=== PATIENT | female | born 1950 | race Caucasian/White ===

== ENCOUNTER 2017-10-20 07:37 | Outpatient (CLI) | payer OTHER | END 2017-10-20 08:00 | disposition home or self-care (01) | LOC: NUCLEAR 07:37 | DX: Z80.3 Family history of malignant neoplasm of breast (principal); C50.111 Malignant neoplasm of central portion of right female breast; Z85.3 Personal history of malignant neoplasm of breast; D51.8 Other vitamin B12 deficiency anemias; R97.0 Elevated carcinoembryonic antigen [CEA]; E55.9 Vitamin D deficiency, unspecified; M81.0 Age-related osteoporosis without current pathological fracture; I10 Essential (primary) hypertension; E78.5 Hyperlipidemia, unspecified; Z79.811 Long term (current) use of aromatase inhibitors; Z17.0 Estrogen receptor positive status [ER+]; Z92.23 Personal history of estrogen therapy; Z98.61 Coronary angioplasty status | CPT/HCPCS: 78816; A9552 ==

== ENCOUNTER → 2018-02-12 | Outpatient (CLI) | payer OTHER | END | disposition home or self-care (01) | LOC: TOM 07:45 | DX: Z80.3 Family history of malignant neoplasm of breast (principal); C50.111 Malignant neoplasm of central portion of right female breast; Z85.3 Personal history of malignant neoplasm of breast; D51.8 Other vitamin B12 deficiency anemias; R97.0 Elevated carcinoembryonic antigen [CEA]; E55.9 Vitamin D deficiency, unspecified; M81.0 Age-related osteoporosis without current pathological fracture; I10 Essential (primary) hypertension; Z79.811 Long term (current) use of aromatase inhibitors; Z17.0 Estrogen receptor positive status [ER+]; Z92.23 Personal history of estrogen therapy; Z98.61 Coronary angioplasty status; R82.8 Abnormal findings on cytological and histological examination of urine; E78.4 Other hyperlipidemia | CPT/HCPCS: 71260; 74177; Q9965 ==

== ENCOUNTER 2018-03-09 07:43 | Outpatient (CLI) | payer OTHER | END 2018-03-09 08:00 | disposition home or self-care (01) | LOC: NUCLEAR 07:43 | DX: C50.111 Malignant neoplasm of central portion of right female breast (principal); Z80.3 Family history of malignant neoplasm of breast; Z85.3 Personal history of malignant neoplasm of breast; D51.8 Other vitamin B12 deficiency anemias; R97.0 Elevated carcinoembryonic antigen [CEA]; E55.9 Vitamin D deficiency, unspecified; M81.0 Age-related osteoporosis without current pathological fracture; I10 Essential (primary) hypertension; E78.5 Hyperlipidemia, unspecified; Z79.811 Long term (current) use of aromatase inhibitors; Z17.0 Estrogen receptor positive status [ER+]; Z92.23 Personal history of estrogen therapy; Z98.62 Peripheral vascular angioplasty status; R82.8 Abnormal findings on cytological and histological examination of urine | CPT/HCPCS: 78816; A9552 ==

== ENCOUNTER 2018-05-13 06:08 | Day surgery (SDC) | payer OTHER ==
[~2018-05-13 06:08] MED LIST: BTREX PO; COZAAR50 MG PO; FORTAMET1000 MG PO; NEURIN PO; PLAVIX75 MG PO; TOPROL XL100 M1 PO; ZOCOR40 MG PO
== END 2018-05-13 15:40 | disposition home or self-care (01) ==
LOC: CIR.AMB 06:08
DX: C79.51 Secondary malignant neoplasm of bone (principal)
CPT/HCPCS: 36561; C1751

== ENCOUNTER 2018-11-15 08:22 | Outpatient (CLI) | payer OTHER | END 2018-11-15 08:26 | disposition home or self-care (01) | LOC: LAB 08:22 | DX: Z80.3 Family history of malignant neoplasm of breast (principal); C50.111 Malignant neoplasm of central portion of right female breast; C79.51 Secondary malignant neoplasm of bone; Z85.3 Personal history of malignant neoplasm of breast; D51.8 Other vitamin B12 deficiency anemias; R97.0 Elevated carcinoembryonic antigen [CEA]; E55.9 Vitamin D deficiency, unspecified; M81.0 Age-related osteoporosis without current pathological fracture; I10 Essential (primary) hypertension; E78.49 Other hyperlipidemia; Z92.23 Personal history of estrogen therapy; Z98.61 Coronary angioplasty status; R82.8 Abnormal findings on cytological and histological examination of urine ==

== ENCOUNTER 2018-12-16 09:18 | Outpatient (CLI) | payer OTHER | END 2018-12-16 13:09 | disposition home or self-care (01) | LOC: LAB 09:18 | DX: C50.111 Malignant neoplasm of central portion of right female breast (principal); C79.51 Secondary malignant neoplasm of bone; Z80.3 Family history of malignant neoplasm of breast; Z85.3 Personal history of malignant neoplasm of breast; D51.8 Other vitamin B12 deficiency anemias; R97.0 Elevated carcinoembryonic antigen [CEA]; E55.9 Vitamin D deficiency, unspecified; M81.0 Age-related osteoporosis without current pathological fracture; I10 Essential (primary) hypertension; E78.49 Other hyperlipidemia; Z79.811 Long term (current) use of aromatase inhibitors; Z17.0 Estrogen receptor positive status [ER+]; Z92.23 Personal history of estrogen therapy; Z98.61 Coronary angioplasty status; R82.8 Abnormal findings on cytological and histological examination of urine; R97.8 Other abnormal tumor markers ==

== ENCOUNTER 2019-03-09 09:24 | Outpatient (CLI) | payer OTHER | END 2019-03-09 10:50 | disposition home or self-care (01) | LOC: LAB 09:24 | DX: C50.111 Malignant neoplasm of central portion of right female breast (principal); C79.51 Secondary malignant neoplasm of bone; D51.8 Other vitamin B12 deficiency anemias; Z80.3 Family history of malignant neoplasm of breast; Z85.3 Personal history of malignant neoplasm of breast; R97.0 Elevated carcinoembryonic antigen [CEA]; E55.9 Vitamin D deficiency, unspecified; M81.0 Age-related osteoporosis without current pathological fracture; I10 Essential (primary) hypertension; E78.49 Other hyperlipidemia; Z79.811 Long term (current) use of aromatase inhibitors; Z17.0 Estrogen receptor positive status [ER+]; Z92.23 Personal history of estrogen therapy; Z98.61 Coronary angioplasty status; R82.8 Abnormal findings on cytological and histological examination of urine ==

== ENCOUNTER 2019-05-11 09:02 | Outpatient (CLI) | payer OTHER | END 2019-05-11 09:04 | disposition home or self-care (01) | LOC: NUCLEAR 09:02 | DX: Z80.3 Family history of malignant neoplasm of breast (principal); C50.111 Malignant neoplasm of central portion of right female breast; C79.51 Secondary malignant neoplasm of bone; Z85.3 Personal history of malignant neoplasm of breast; D51.8 Other vitamin B12 deficiency anemias; R97.0 Elevated carcinoembryonic antigen [CEA]; E55.9 Vitamin D deficiency, unspecified; M81.0 Age-related osteoporosis without current pathological fracture; I10 Essential (primary) hypertension; E78.49 Other hyperlipidemia; Z79.811 Long term (current) use of aromatase inhibitors; Z17.0 Estrogen receptor positive status [ER+]; Z92.23 Personal history of estrogen therapy; Z98.61 Coronary angioplasty status; R82.8 Abnormal findings on cytological and histological examination of urine | CPT/HCPCS: 78816; A9552 ==

== ENCOUNTER 2019-06-16 08:05 | Outpatient (CLI) | payer OTHER | END 2019-06-16 08:10 | disposition home or self-care (01) | LOC: LAB 08:05 | DX: D50.8 Other iron deficiency anemias (principal); I10 Essential (primary) hypertension; C50.111 Malignant neoplasm of central portion of right female breast; C79.51 Secondary malignant neoplasm of bone; Z80.3 Family history of malignant neoplasm of breast; Z85.3 Personal history of malignant neoplasm of breast; R97.0 Elevated carcinoembryonic antigen [CEA]; E55.9 Vitamin D deficiency, unspecified; M81.0 Age-related osteoporosis without current pathological fracture; E78.49 Other hyperlipidemia; Z79.811 Long term (current) use of aromatase inhibitors; Z17.0 Estrogen receptor positive status [ER+]; Z92.23 Personal history of estrogen therapy; Z98.61 Coronary angioplasty status; R82.8 Abnormal findings on cytological and histological examination of urine ==

== ENCOUNTER 2019-08-03 10:06 | Outpatient (CLI) | payer OTHER | END 2019-08-03 10:12 | disposition home or self-care (01) | LOC: LAB 10:06 | DX: C50.111 Malignant neoplasm of central portion of right female breast (principal); C79.51 Secondary malignant neoplasm of bone; Z85.3 Personal history of malignant neoplasm of breast; D51.8 Other vitamin B12 deficiency anemias; R97.0 Elevated carcinoembryonic antigen [CEA]; E55.9 Vitamin D deficiency, unspecified; M81.0 Age-related osteoporosis without current pathological fracture; I10 Essential (primary) hypertension; E78.49 Other hyperlipidemia; Z79.811 Long term (current) use of aromatase inhibitors; Z17.0 Estrogen receptor positive status [ER+]; Z92.23 Personal history of estrogen therapy; Z98.61 Coronary angioplasty status; D50.8 Other iron deficiency anemias; E03.8 Other specified hypothyroidism; R97.8 Other abnormal tumor markers; Z80.3 Family history of malignant neoplasm of breast ==

== ENCOUNTER 2019-11-14 08:49 | Outpatient (CLI) | payer OTHER | END 2019-11-14 08:52 | disposition home or self-care (01) | LOC: LAB 08:49 | DX: Z80.3 Family history of malignant neoplasm of breast (principal); C50.111 Malignant neoplasm of central portion of right female breast; C79.51 Secondary malignant neoplasm of bone; Z85.3 Personal history of malignant neoplasm of breast; D51.8 Other vitamin B12 deficiency anemias; R97.0 Elevated carcinoembryonic antigen [CEA]; E55.9 Vitamin D deficiency, unspecified; M81.0 Age-related osteoporosis without current pathological fracture; I10 Essential (primary) hypertension; E78.49 Other hyperlipidemia; Z79.811 Long term (current) use of aromatase inhibitors; Z17.0 Estrogen receptor positive status [ER+]; Z92.23 Personal history of estrogen therapy; Z98.61 Coronary angioplasty status; R82.89 Other abnormal findings on cytological and histological examination of urine ==

== ENCOUNTER 2020-05-21 07:51 | Outpatient (CLI) | payer OTHER | END 2020-05-21 08:00 | disposition home or self-care (01) | LOC: NUCLEAR 07:51 | PROVIDERS: ATTEND Internal Medicine Hematology & Oncology | DX: C50.111 Malignant neoplasm of central portion of right female breast (principal); C79.51 Secondary malignant neoplasm of bone; Z85.3 Personal history of malignant neoplasm of breast; D51.8 Other vitamin B12 deficiency anemias; R97.0 Elevated carcinoembryonic antigen [CEA]; E55.9 Vitamin D deficiency, unspecified; M81.0 Age-related osteoporosis without current pathological fracture; Z80.3 Family history of malignant neoplasm of breast; I10 Essential (primary) hypertension; E78.49 Other hyperlipidemia; Z79.811 Long term (current) use of aromatase inhibitors; Z17.0 Estrogen receptor positive status [ER+]; Z92.23 Personal history of estrogen therapy; Z98.61 Coronary angioplasty status; R82.81 Pyuria | CPT/HCPCS: 78816; A9552 ==

== ENCOUNTER 2021-05-13 08:12 | Outpatient (CLI) | payer OTHER | END 2021-05-13 08:14 | disposition home or self-care (01) | LOC: NUCLEAR 08:12 | PROVIDERS: ATTEND Internal Medicine Hematology & Oncology | DX: C50.111 Malignant neoplasm of central portion of right female breast (principal); C79.51 Secondary malignant neoplasm of bone; Z80.3 Family history of malignant neoplasm of breast | CPT/HCPCS: 78816; A9552 ==